=== PATIENT | male | born 1970 | race Two or more races ===

== ENCOUNTER 2024-08-18 14:26 | Inpatient (IN) | payer MEDICARE, OTHER ==
[~2024-08-18] VITALS: Ht 167.6 cm; Wt 83.9 kg
[2024-08-18 15:51] LABS: BASOPHILS % (AUTO) 0.1 % (0.0-2.0); EOSINOPHILS % (AUTO) 0.1 % (0.0-6.0); HEMATOCRIT 49 % (39-51); HEMOGLOBIN 16.3 g/dL (13.5-17.5); LYMPHOCYTES # (AUTO) 1.3 K/uL (0.8-4.8); LYMPHOCYTES % (AUTO) 9.7 % (20.0-44.0); MEAN CORPUSCULAR HEMOGLOBIN 30 PG (26.0-33.0); MEAN CORPUSCULAR HGB CONC 33 g/dl (31.0-36.0); MEAN CORPUSCULAR VOLUME 90 fL (80-96); MONOCYTES # (AUTO) 0.2 K/uL (0.1-1.30); MONOCYTES % (AUTO) 1.7 % (2.0-12.0); NEUTROPHILS # (AUTO) 11.9 K/uL (1.8-8.9); NEUTROPHILS % (AUTO) 88.4 % (43.0-81.0); PLATELET COUNT (AUTO) 219 K/uL (150-450); RED BLOOD CELL COUNT(AUTO) 5.46 MIL/uL (4.5-6.0); RED CELL DISTRIBUTION WIDTH 14.8 % (11.5-15.0); WHITE BLOOD COUNT (AUTO) 13.4 K/uL (4.3-11.0)
[2024-08-18 15:57] LABS: CALCIUM, SERUM 9.4 mg/dL (8.5-10.1); CARBON DIOXIDE 22 mmol/L (21-32); CHLORIDE 99 mmol/L (98-107); CREATININE 0.8 mg/dL (0.6-1.3); GLUCOSE 366 mg/dL (74-106); POTASSIUM 4.5 mmol/L (3.5-5.1); SODIUM SERUM 130 mmol/L (136-145); UREA NITROGEN, BLOOD 18 mg/dL (7-18)
[2024-08-18 16:03] LABS: ALANINE AMINOTRANSFERASE 23 U/L (12-78); ALBUMIN 3.2 g/dL (3.4-5.0); ALCOHOL, BLOOD < 3 mg/dL (0-10); ALKALINE PHOSPHATASE 85 U/L (46-116); ASPARTATE AMINOTRANSFERASE 14 U/L (15-37); BILIRUBIN,DIRECT 0.1 mg/dL (0.0-0.2); BILIRUBIN,TOTAL 0.2 mg/dL (0.2-1.0); SALICYLATE 5.3 mg/dL (2.8-20.0); TOTAL PROTEIN, SERUM 6.9 g/dL (6.4-8.2)
[2024-08-18 16:04] LABS: ACETAMINOPHEN <10 ug/ml (10-30)
[2024-08-18] MEDS ORDERED: GLIP5TAB13 PO (16:19)
[2024-08-18] MEDS ORDERED: OLAN5TAB3 PO (16:19)
[2024-08-18] MEDS ORDERED: AZIT500T4 PO (16:19)
[2024-08-18] MEDS ORDERED: INSU100V39 SQ (16:19)
[2024-08-18] MEDS ORDERED: LEVO75TA7 PO (16:19)
[2024-08-18] MEDS ORDERED: INSU100V7 SQ ×2 (16:19)
[2024-08-18] MEDS ORDERED: DIVA-78 PO (16:19)
[2024-08-18] MEDS ORDERED: METF-442 PO (16:19)
[2024-08-18] MEDS ORDERED: BUSP7.5T7 PO (16:19)
[2024-08-18] MEDS ORDERED: PRED20TA PO (16:19)
[2024-08-18] MEDS ORDERED: ATOR20TA PO (16:19)
[2024-08-18 16:53] LABS: APPEARANCE,URINE CLEAR (CLEAR); BILIRUBIN,URINE NEGATIVE (NEGATIVE); BLOOD, URINE NEGATIVE Ery/uL (NEGATIVE); COLOR,URINE YELLOW (YELLOW); KETONES,URINE NEGATIVE (NEGATIVE); LEUKOCYTE ESTERASE ,URINE NEGATIVE (NEGATIVE); NITRITE, URINE NEGATIVE (NEGATIVE); PROTEIN,URINE NEGATIVE (NEGATIVE); UGLUCOSE 3+ mg/dL (NEGATIVE); UROBILINOGEN,URINE 0.2 EU/dL (0.2)
[2024-08-18 17:20] LABS: AMPHETAMINE, URINE NEGATIVE (NEGATIVE); BARBITURATE, URINE NEGATIVE (NEGATIVE); BENZODIAZEPINE, URINE NEGATIVE (NEGATIVE); CANNABINOID, URINE POSITIVE (NEGATIVE); COCCAINE, URINE NEGATIVE (NEGATIVE); OPIATE, URINE NEGATIVE (NEGATIVE); PHENCYCLIDINE SCREEN,URINE NEGATIVE (NEGATIVE)
[2024-08-18] MEDS ORDERED: DEXTROSE 50%-WATER 50 ML DISP.SYRIN IV PRN (18:00)
[2024-08-18 18:05] LABS: ADD URINE CULTURE NO; BACTERIA,URINE None seen /HPF (None Seen); RBC,URINE 0-2 /HPF (0-2); SQUAMOUS EPITHELIAL CELL,UR 0-2 /HPF (None Seen); WBC,URINE 0-2 /HPF (0-3)
[2024-08-18] MEDS: IV NS 0.9% 500 ML BAG IV ONE (18:15)
[2024-08-18] MEDS: INSULIN GLARGINE, 100 UNIT/ML CARTRIDGE SQ SCH (22:00)
[2024-08-18] MEDS: BLOOD SUGAR DIAGNOSTIC 1 EACH STRIP VI SCH (22:00)
[2024-08-19 00:35] VITALS: O2SAT 94
[2024-08-19] MEDS ORDERED: MAG HYDROX/AL HYDROX/SIMETH 30 ML UDC PO PRN (01:30)
[2024-08-19] MEDS ORDERED: LORAZEPAM 0.5 MG TABLET PO PRN (01:30)
[2024-08-19] MEDS ORDERED: TEMAZEPAM 7.5 MG CAPSULE PO PRN (01:30)
[2024-08-19] MEDS ORDERED: MAGNESIUM HYDROXIDE 30 ML UDC PO PRN (01:30)
[2024-08-19] MEDS ORDERED: ACETAMINOPHEN 325 MG TABLET PO PRN (01:30)
[2024-08-19] MEDS: ATORVASTATIN 40 MG TABLET PO SCH (01:44)
[2024-08-19] MEDS: BLOOD SUGAR DIAGNOSTIC 1 EACH STRIP IN ONE (02:32)
[2024-08-19 07:38] LABS: BASOPHILS % (AUTO) 0.3 % (0.0-2.0); EOSINOPHILS # (AUTO) 0.3 K/uL (0.0-0.7); HEMATOCRIT 47 % (39-51); HEMOGLOBIN 16.2 g/dL (13.5-17.5); LYMPHOCYTES # (AUTO) 3.3 K/uL (0.8-4.8); LYMPHOCYTES % (AUTO) 25.8 % (20.0-44.0); MEAN CORPUSCULAR HEMOGLOBIN 31 PG (26.0-33.0); MEAN CORPUSCULAR HGB CONC 35 g/dl (31.0-36.0); MEAN CORPUSCULAR VOLUME 89 fL (80-96); MONOCYTES # (AUTO) 0.8 K/uL (0.1-1.30); MONOCYTES % (AUTO) 5.9 % (2.0-12.0); NEUTROPHILS # (AUTO) 8.5 K/uL (1.8-8.9); PLATELET COUNT (AUTO) 209 K/uL (150-450); RED BLOOD CELL COUNT(AUTO) 5.24 MIL/uL (4.5-6.0); RED CELL DISTRIBUTION WIDTH 14.5 % (11.5-15.0); WHITE BLOOD COUNT (AUTO) 12.9 K/uL (4.3-11.0)
[2024-08-19 08:00] VITALS: BP 108/58; TEMP 97.9; O2SAT 94
[2024-08-19] MEDS ORDERED: INSULIN GLARGINE, 100 UNIT/ML CARTRIDGE SQ SCH (09:00)
[2024-08-19] MEDS: INSULIN REGULAR, HUMAN 100 UNIT/ML 3 ML VIAL SQ PRN (09:03)
[2024-08-19] MEDS: METFORMIN 500 MG TABLET PO SCH (09:46)
[2024-08-19] MEDS: LEVOTHYROXINE SODIUM 75 MCG TABLET PO SCH (09:46)
[2024-08-19] MEDS: glipiZIDE 5 MG TABLET PO SCH (09:46)
[2024-08-19] MEDS: predniSONE 20 MG TABLET PO SCH (09:46)
[2024-08-19] MEDS: AZITHROMYCIN 250 MG TABLET PO SCH (09:48)
[2024-08-19] MEDS: INSULIN GLARGINE, 100 UNIT/ML CARTRIDGE SQ SCH (11:42)
[2024-08-19 15:50] LABS: CALCIUM, SERUM 9.2 mg/dL (8.5-10.1); CREATININE 0.9 mg/dL (0.6-1.3); POTASSIUM 5.1 mmol/L (3.5-5.1)
[2024-08-19 16:00] VITALS: BP 119/65; TEMP 98; O2SAT 94
[2024-08-19 20:12] VITALS: BP 114/63; TEMP 98.1; O2SAT 95
[2024-08-19] MEDS: OLANZAPINE 5 MG TABLET PO SCH (21:00)
[2024-08-19] MEDS: DIVALPROEX SODIUM 250 MG TABLET.DR PO SCH (21:00)
[2024-08-19] MEDS: *INSULIN REGULAR(HUMULIN R)HUM 100 UNIT/ML VIAL SQ PRN (21:59)
[2024-08-20 08:00] VITALS: BP 146/85; TEMP 97.8; O2SAT 96
[2024-08-20] MEDS: NICOTINE PATCH (21MG) 21 MG PATCH.TD24 TD SCH (08:43)
[2024-08-20 11:45] LABS: BASOPHILS % (AUTO) 0.3 % (0.0-2.0); EOSINOPHILS # (AUTO) 0.1 K/uL (0.0-0.7); EOSINOPHILS % (AUTO) 0.7 % (0.0-6.0); HEMATOCRIT 49 % (39-51); HEMOGLOBIN 16.3 g/dL (13.5-17.5); LYMPHOCYTES # (AUTO) 1.4 K/uL (0.8-4.8); LYMPHOCYTES % (AUTO) 11.1 % (20.0-44.0); MEAN CORPUSCULAR HEMOGLOBIN 30 PG (26.0-33.0); MEAN CORPUSCULAR HGB CONC 33 g/dl (31.0-36.0); MEAN CORPUSCULAR VOLUME 90 fL (80-96); MONOCYTES # (AUTO) 0.5 K/uL (0.1-1.30); NEUTROPHILS # (AUTO) 10.7 K/uL (1.8-8.9); NEUTROPHILS % (AUTO) 83.9 % (43.0-81.0); PLATELET COUNT (AUTO) 200 K/uL (150-450); RED BLOOD CELL COUNT(AUTO) 5.43 MIL/uL (4.5-6.0); WHITE BLOOD COUNT (AUTO) 12.8 K/uL (4.3-11.0)
[2024-08-20 12:01] LABS: CALCIUM, SERUM 9.1 mg/dL (8.5-10.1); CREATININE 0.9 mg/dL (0.6-1.3); POTASSIUM 4.7 mmol/L (3.5-5.1)
[2024-08-20 16:00] VITALS: BP 126/72; TEMP 97.5; O2SAT 98
[2024-08-20 21:16] VITALS: BP 107/58; TEMP 97.9; O2SAT 96
[2024-08-21 08:00] VITALS: BP 115/62; TEMP 98.1; O2SAT 98
[2024-08-21] MEDS: LORAZEPAM 0.5 MG TABLET PO PRN (09:20)
[2024-08-21 16:00] VITALS: BP 139/88; TEMP 98.7; O2SAT 98
[2024-08-21 20:14] VITALS: BP 107/51; TEMP 98; O2SAT 93
[2024-08-22 08:00] VITALS: BP 118/84; TEMP 97.8; O2SAT 94
[2024-08-22 16:00] VITALS: BP 152/85; TEMP 98; O2SAT 98
[2024-08-22 20:20] VITALS: BP 138/66; TEMP 98; O2SAT 98
[2024-08-22] MEDS: TEMAZEPAM 7.5 MG CAPSULE PO PRN (23:57)
[2024-08-23 08:00] VITALS: BP 126/83; TEMP 98.3; O2SAT 98
[2024-08-23 16:00] VITALS: BP 112/56; TEMP 98.1; O2SAT 96
[2024-08-23 20:11] VITALS: BP 105/55; TEMP 98.2; O2SAT 96
[2024-08-24 08:00] VITALS: BP 150/88; TEMP 98; O2SAT 97
[2024-08-24] MEDS: INSULIN GLARGINE, 100 UNIT/ML CARTRIDGE SQ SCH (08:58)
[2024-08-24 16:00] VITALS: BP 117/61; TEMP 98; O2SAT 98
[2024-08-24 20:23] VITALS: BP 111/55; TEMP 98.1; O2SAT 100
[2024-08-24 21:30] VITALS: BP 118/72; TEMP 98
[2024-08-25 08:00] VITALS: BP 119/60; TEMP 98.6; O2SAT 100
[2024-08-25 16:00] VITALS: BP 112/62; TEMP 98; O2SAT 98
[2024-08-25 21:17] VITALS: BP 112/58; TEMP 98.1; O2SAT 96
[2024-08-26 08:00] VITALS: BP 114/82; TEMP 98; O2SAT 98
[2024-08-26] MEDS: INSULIN GLARGINE, 100 UNIT/ML CARTRIDGE SQ SCH (09:37)
[2024-08-26 16:00] VITALS: BP 134/80; TEMP 98; O2SAT 99
[2024-08-26 20:44] VITALS: BP 118/65; TEMP 98; O2SAT 98
[2024-08-27 08:00] VITALS: BP 127/74; TEMP 98.2; O2SAT 96
[2024-08-27] MEDS: INSULIN GLARGINE, 100 UNIT/ML CARTRIDGE SQ SCH (08:53)
[2024-08-27 16:05] VITALS: BP 136/89; TEMP 98.7; O2SAT 96
[2024-08-27 20:33] VITALS: BP 143/83; TEMP 98.1; O2SAT 95
[2024-08-28 08:00] VITALS: BP 123/64; TEMP 97.9; O2SAT 95
[2024-08-28] MEDS: INSULIN GLARGINE, 100 UNIT/ML CARTRIDGE SQ SCH (08:53)
[2024-08-28] MEDS: INSULIN REGULAR, HUMAN 100 UNIT/ML 3 ML VIAL SQ PRN (12:03)
[2024-08-28 16:05] VITALS: BP 134/75; TEMP 98.6; O2SAT 97
[2024-08-28 20:09] VITALS: BP 136/81; TEMP 98; O2SAT 98
[2024-08-28] MEDS: *INSULIN REGULAR(HUMULIN R)HUM 100 UNIT/ML VIAL SQ PRN (21:32)
[2024-08-29] MEDS: INSULIN GLARGINE, 100 UNIT/ML CARTRIDGE SQ SCH (07:55)
[2024-08-29 09:45] VITALS: BP 119/71; TEMP 98.7; O2SAT 96
== END 2024-08-29 13:20 | DRG 885 ==
LOC: ER 14:49 → GPS 21:14
PROVIDERS: ADMIT Psychiatry & Neurology Psychiatry; ATTEND Student in an Organized Health Care Education/Training Program
DX: F39 Unspecified mood [affective] disorder (principal); E11.65 Type 2 diabetes mellitus with hyperglycemia; F20.0 Paranoid schizophrenia; F29 Unspecified psychosis not due to a substance or known physiological condition; E78.5 Hyperlipidemia, unspecified; D72.829 Elevated white blood cell count, unspecified; E03.9 Hypothyroidism, unspecified; F17.210 Nicotine dependence, cigarettes, uncomplicated; F32.A Depression, unspecified; Z79.4 Long term (current) use of insulin; J44.9 Chronic obstructive pulmonary disease, unspecified; Z73.6 Limitation of activities due to disability; I10 Essential (primary) hypertension; Z20.822 Contact with and (suspected) exposure to COVID-19; G31.84 Mild cognitive impairment of uncertain or unknown etiology
CPT/HCPCS: 36415; 71045-TC; 80048-TC; 80061-TC; 80076-TC; 81001; 82962-TC; 84443-TC; 85025-TC; 87081-TC; 97116-TC; 97530-TC; G0480; J1815; J7040